=== PATIENT | female | born 1980 | race Caucasian/White ===

== ENCOUNTER 2018-08-25 14:29 | Emergency (ER) | payer SELFPAY ==
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
[2018-08-25] MEDS ORDERED: LIDOCAINE 1% INJ-PF (10 MG/ML) 30 ML SDV INJ ONE (15:51)
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
[2018-08-25 17:11] VITALS: BP 108/64
== END 2018-08-25 17:11 | disposition home or self-care (01) ==
LOC: ER 14:29
DX: S81.811A Laceration without foreign body, right lower leg, initial encounter (principal); W26.0XXA Contact with knife, initial encounter; Z88.6 Allergy status to analgesic agent
CPT/HCPCS: 99283; 73590; 12002; J3490

== ENCOUNTER 2020-03-11 16:20 | Observation (INO) | payer SELFPAY ==
[2020-03-11] MEDS ORDERED: PANTOPRAZOLE SODIUM 40 MG VIAL IV ONE (17:20)
--- NOTE | 2020-03-11 17:21 | ER Document Report ---
ED Medical Screen (RME) - General Chief Complaint: Abdominal Pain Stated Complaint: ABDOMINAL PAIN,BLACK STOOLS Time Seen by Provider: 03/11/20 17:14 Notes: HPI: 40-year-old female presenting with 1 week of a constant epigastric abdominal pain no vomiting. States she did try Pepto-Bismol on the first day to see if it would help the pain and it did not. Only took 1 dose but reports over the last 3 days she has had increasing constipation but her stool has turned dark black. PHYSICAL EXAMINATION: There is mild to moderate tenderness in the epigastric left upper quadrant region on palpation I have greeted and performed a rapid initial assessment of this patient. A comprehensive ED assessment and evaluation of the patient, analysis of test results and completion of medical decision making process will be conducted by an additional ED providers. TRAVEL OUTSIDE OF THE [place] IN LAST 30 DAYS: No - Related Data Allergies/Adverse Reactions: acetaminophen [From Tylenol] Allergy (Intermediate, Verified 08/25/18 14:32) Hives Home Medications: tums Past Medical History Neurological Medical History: Reports: Hx Migraine Renal/ Medical History: Denies: Hx Peritoneal Dialysis Past Surgical History: Reports: Hx Orthopedic Surgery - left leg - Immunizations Hx Diphtheria, Pertussis, Tetanus Vaccination: Yes Physical Exam - Vital signs Vitals: Temp Pulse Resp BP Pulse Ox 99.0 F 78 16 120/68 100 03/11/20 16:55 03/11/20 16:55 03/11/20 16:55 03/11/20 16:55 03/11/20 16:55 Course - Vital Signs Vital signs: Temp Pulse Resp BP Pulse Ox 99.0 F 78 16 120/68 100 03/11/20 16:55 03/11/20 16:55 03/11/20 16:55 03/11/20 16:55 03/11/20 16:55
[2020-03-11 17:43] LABS: ABSOLUTE EOSINOPHILS # (AUTO) 0.1 10^3/uL (0.0-0.6); ABSOLUTE LYMPHOCYTES (AUTO) 1.8 10^3/uL (0.5-4.7); ABSOLUTE MONOCYTES (AUTO) 0.4 10^3/uL (0.1-1.4); ABSOLUTE NEUT (AUTO) 3.1 10^3/uL (1.7-8.2); BASOPHILS % (AUTO) 0.6 % (0-2); EOSINOPHILS % (AUTO) 0.9 % (0-6); HEMOGLOBIN 10.1 g/dL (12.0-15.5); LYMPHOCYTES % (AUTO) 33.8 % (13-45); MEAN CORPUSCULAR HEMOGLOBIN 23.2 pg (27.0-33.4); MEAN CORPUSCULAR HGB CONC 32.6 g/dL (32.0-36.0); MEAN CORPUSCULAR VOLUME 71 fl (80-97); MONOCYTES % (AUTO) 7.2 % (3-13); PLATELET COUNT 315 10^3/uL (150-450); RED BLOOD COUNT 4.35 10^6/uL (3.72-5.28); RED CELL DISTRIBUTION WIDTH 18.9 % (11.5-14.0); SEGMENTED NEUTROPHILS % (AUTO) 57.5 % (42-78); TOTAL CELLS COUNTED % (AUTO) 100 %; WHITE BLOOD COUNT 5.4 10^3/uL (4.0-10.5)
[2020-03-11 17:55] LABS: APPEARANCE,URINE CLEAR; BILIRUBIN,URINE NEGATIVE (NEGATIVE); COLOR,URINE YELLOW; GLUCOSE, URINE NEGATIVE (NEGATIVE); KETONES,URINE NEGATIVE (NEGATIVE); LEUKOCYTE ESTERASE,URINE NEGATIVE (NEGATIVE); NITRITE,URINE NEGATIVE (NEGATIVE); PROTEIN,URINE NEGATIVE (NEGATIVE); URINE SPECIFIC GRAVITY 1.011; UROBILINOGEN,URINE NEGATIVE mg/dL (<2.0)
[2020-03-11 18:12] LABS: ALBUMIN 4.2 g/dL (3.5-5.0); ALKALINE PHOSPHATASE 66 U/L (38-126); ANION GAP 8 (5-19); ASPARTATE AMINO TRANSFERASE 18 U/L (14-36); BILIRUBIN,TOTAL 0.2 mg/dL (0.2-1.3); BLOOD UREA NITROGEN 11 mg/dL (7-20); CARBON DIOXIDE 27 mmol/L (22-30); CHLORIDE 104 mmol/L (98-107); GLUCOSE 91 mg/dL (75-110); POTASSIUM 4.6 mmol/L (3.6-5.0); TOTAL PROTEIN 7.4 g/dL (6.3-8.2)
--- NOTE | 2020-03-11 21:24 | RADIOLOGY REPORT (SQ) ---
CLINICAL INDICATION: epigastric pain. . TECHNIQUE: Contrast enhanced spiral axial CT imaging was obtained of the abdomen and pelvis with multiplanar reconstructions. This exam was performed according to our departmental dose-optimization program, which includes automated exposure control, adjustment of the mA and/or kV according to patient size and/or use of iterative reconstruction techniques. Additional delayed phase imaging . Repeat imaging was obtained due to IV failure on initial imaging. COMPARISON: None. CORRELATION: None. FINDINGS: Abdomen: The lung bases are grossly clear. The heart is of normal size. No evidence of pleural or pericardial fluid. The liver is of normal size contour and attenuation. The gallbladder is nondistended without inflammatory change. The pancreas is unremarkable. The spleen is unremarkable. The adrenals are unremarkable. The kidneys appear grossly normal without evidence of urolithiasis or hydronephrosis. There is no evidence of free air. Small amount of free fluid in the deep pelvis, simple appearing. No bulky adenopathy. Abdominal aorta is nonaneurysmal. Pelvis: The bowel is nonobstructed. The bowel is unopacified with oral contrast. Pelvic contents definite presumed ovarian cysts, bilaterally measuring 3.3 cm on the left and estimated at 2.3 cm on the right. The appendix is normal. Visualized bones demonstrate apparent old posttraumatic change to the pelvis.. IMPRESSION: No acute intra-abdominal process is identified. Specifically, the cause of the epigastric pain is not seen. Small amount of free intraperitoneal fluid, simple appearing.. Presumed ovarian cysts
--- NOTE | 2020-03-11 23:02 | ER Document Report ---
ED GI/ - General Chief Complaint: Abdominal Pain Stated Complaint: ABDOMINAL PAIN,BLACK STOOLS Time Seen by Provider: 03/11/20 17:14 Notes: Patient is a 40-year-old female presents emergency department with a chief complaint of left upper quadrant abdominal pain. Patient states that her symptoms started about a week ago. The pain has come and gone. She also reports black tarry stools. Patient states that she has been taking Aleve about 5 times a week for pain. Reports some dizziness every now and again. TRAVEL OUTSIDE OF THE [place] IN LAST 30 DAYS: No - Related Data Allergies/Adverse Reactions: acetaminophen [From Tylenol] Allergy (Intermediate, Verified 08/25/18 14:32) Hives Home Medications: tums Past Medical History - Social History Smoking Status: Unknown if Ever Smoked Family History: Reviewed & Not Pertinent Neurological Medical History: Reports: Hx Migraine Renal/ Medical History: Denies: Hx Peritoneal Dialysis Past Surgical History: Reports: Hx Orthopedic Surgery - left leg - Immunizations Hx Diphtheria, Pertussis, Tetanus Vaccination: Yes Hx Pneumococcal Vaccination: 09/11/00 Review of Systems - Review of Systems Notes: REVIEW OF SYSTEMS: CONSTITUTIONAL : Denies recent illness. Denies recent unintentional weight loss. Denies fever, chills, or sweats. EENT: Denies eye, ear, throat, or mouth pain, discharge, or symptoms. Denies nasal or sinus congestion. CARDIOVASCULAR: Denies chest pain. RESPIRATORY: Denies shortness of breath, cough, congestion, difficulty breathing, or wheezing. GASTROINTESTINAL: See HPI. GENITOURINARY: Denies difficulty urinating, burning, blood in urine, urgency or frequency. MUSCULOSKELETAL: Denies neck and back pain. Denies joint pain or swelling. SKIN: Denies rash, itchiness, or lesions HEMATOLOGIC : Denies easy bruising or bleeding. LYMPHATIC: Denies swollen, painful, enlarged glands. NEUROLOGICAL: Denies no numbness or tingling denies weakness. Denies headache. Denies altered mental status. Denies alteration in speech. PSYCHIATRIC: Denies stress, anxiety, alteration in sleep patterns, or depression. All other systems reviewed and negative. Physical Exam - Vital signs Vitals: Temp Pulse Resp BP Pulse Ox 99.0 F 78 16 120/68 100 03/11/20 16:55 03/11/20 16:55 03/11/20 16:55 03/11/20 16:55 03/11/20 16:55 - Notes Notes: PHYSICAL EXAMINATION: GENERAL: Appears well, healthy, well-nourished, no acute distress. HEAD: Normocephalic, atraumatic. EYES: PERRL, conjunctiva normal, all extraocular movements intact, sclera nonicteric ENT: Moist mucous membranes. NECK: Supple, no noticeable swelling, redness, rash. Normal range of motion. LUNGS: Equal breath sounds bilaterally and clear to auscultation. No wheezes rales or rhonchi. CARDIOVASCULAR: S1-S2, regular rate, regular rhythm. Radial pulses 2+, normal. ABDOMEN: Normoactive bowel sounds. Soft, tender left upper quadrant, no guarding, no rebound tenderness, and no masses palpated. EXTREMITIES: Normal strength and range of motion, no pitting or edema. No cyanosis. NEUROLOGICAL: Moves all extremities upon command. Strength 5/5 in all extremities. PSYCH: Normal mood, normal affect. SKIN: Warm, dry. No rash, lesions, ulcerations noted. Normal skin turgor. RECTAL: No stool noted on rectal exam. Course - Re-evaluation Re-evalutation: 03/11/20 23:20 Hematology shows a hemoglobin of 10.1 and hematocrit of 31. Will repeat labs, as patient still continues to have pain. Both of those labs, will reassess. Chemistries are unremarkable. LFTs are normal and lipase is also normal. Urinalysis is grossly unremarkable. Rectal exam done with ELLA Trevizo at [facility]. No stool noted in rectal vault. 03/12/20 00:03 Repeat labs show a hemoglobin drop of one-point from 10.1-9.1 in 5 hours. Patient did not receive any fluids. 03/12/20 00:[address] Quintero the surgeon network control supervisor. He would like the patient to be admitted to the hospital service. 03/12/20 00:[address] Zuluaga, the hospitalist. Patient will be admitted to the medical floor. - Vital Signs Vital signs: Temp Pulse Resp BP Pulse Ox 98.4 F 65 15 92/49 L 95 03/13/20 07:29 03/13/20 09:17 03/13/20 09:17 03/13/20 08:00 03/13/20 09:17 - Laboratory Result Diagrams: 03/13/20 04:40 03/11/20 17:30 Laboratory results interpreted by me: 03/11/20 03/11/20 17:30 23:17 Hgb 10.1 L 9.1 L Hct 31.0 L 28.9 L MCV 71 L 72 L MCH 23.2 L 22.6 L MCHC 31.3 L RDW 18.9 H 18.8 H Discharge - Discharge Clinical Impression: Complaint of melena Anemia Qualifiers: Anemia type: unspecified type Qualified Code(s): D64.9 - Anemia, unspecified Condition: Stable Disposition: ADMITTED INPATIENT Admitting Provider: Zan (Hospitalist) Unit Admitted: Medical Floor
[2020-03-11] MEDS ORDERED: FAMOTIDINE 20 MG TABLET PO ONE (23:24)
[2020-03-11] MEDS ORDERED: SUCRALFATE 1 GM TABLET PO ONE (23:24)
[2020-03-11 23:43] LABS: ABSOLUTE BASOPHILS # (AUTO) 0.1 10^3/uL (0.0-0.2); ABSOLUTE EOSINOPHILS # (AUTO) 0.1 10^3/uL (0.0-0.6); ABSOLUTE LYMPHOCYTES (AUTO) 2.2 10^3/uL (0.5-4.7); ABSOLUTE MONOCYTES (AUTO) 0.3 10^3/uL (0.1-1.4); ABSOLUTE NEUT (AUTO) 2.5 10^3/uL (1.7-8.2); EOSINOPHILS % (AUTO) 1.4 % (0-6); HEMATOCRIT 28.9 % (36.0-47.0); HEMOGLOBIN 9.1 g/dL (12.0-15.5); LYMPHOCYTES % (AUTO) 42.8 % (13-45); MEAN CORPUSCULAR HEMOGLOBIN 22.6 pg (27.0-33.4); MEAN CORPUSCULAR HGB CONC 31.3 g/dL (32.0-36.0); MEAN CORPUSCULAR VOLUME 72 fl (80-97); MONOCYTES % (AUTO) 5.5 % (3-13); PLATELET COUNT 205 10^3/uL (150-450); RED CELL DISTRIBUTION WIDTH 18.8 % (11.5-14.0); SEGMENTED NEUTROPHILS % (AUTO) 48.3 % (42-78); TOTAL CELLS COUNTED % (AUTO) 100 %; WHITE BLOOD COUNT 5.2 10^3/uL (4.0-10.5)
[2020-03-12] MEDS ORDERED: TEMAZEPAM 7.5 MG CAPSULE PO PRN (01:30)
[2020-03-12] MEDS ORDERED: IPRATROPIUM/ALBUTEROL 0.5-2.5 MG/3 ML AMPUL NEB PRN (01:30)
[2020-03-12] MEDS ORDERED: PROMETHAZINE HCL INJ 25 MG/1 ML VIAL IV PRN (01:30)
[2020-03-12] MEDS ORDERED: MAGNESIUM HYDROXIDE SUSP 30 ML UDCUP PO PRN (01:30)
[2020-03-12] MEDS ORDERED: ONDANSETRON HCL INJ/PF 4 MG/2 ML SDV IV PRN (01:30)
[2020-03-12] MEDS ORDERED: MORPHINE SULFATE 10 MG/ML INJ IV PRN (01:34)
--- NOTE | 2020-03-12 02:06 | PDOC H&P ---
History of Present Illness Admission Date/PCP: 03/12/20 00:20 History of Present Illness: MARY SHARPE is a 40 year old female with past medical history of migraine headaches, chronic low back pain, presented to ED complaining of abdominal pain and melena for the last 1 week. Abdominal pain is midepigastric, burning quality, 6/10 on severity scale, nonradiating, worse with eating, associated with nocturnal cough, metallic taste and melena for the last 1 week. Patient suffers from chronic back pain and takes 400 mg naproxen 5 times a week for the last several years. Denies any nosebleeds, easy bruising, hematemesis, hemoptysis, vaginal bleeding or hematochezia. Also endorses history of heavy menstrual bleeding however regular and last menstrual period was 3 weeks ago. Denies any headache, fever, cough, shortness of breath, chills, chest pain, nausea, vomiting, diarrhea or constipation. In ED was noted to be anemic, surgery was consulted for possible upper GI endosc opy and they recommended for patient to be admitted under hospitalist and they will follow as consult. Past Medical History Neurological Medical History: Reports: Migraine Past Surgical History Past Surgical History: Reports: Orthopedic Surgery - left leg Social History Smoking Status: Unknown if Ever Smoked Family History Family History: Reviewed & Not Pertinent Parental Family History Reviewed: Yes Children Family History Reviewed: Yes Sibling(s) Family History Reviewed.: Yes Medication/Allergy Home Medications: No Home Medications 08/25/18 Allergies/Adverse Reactions: acetaminophen [From Tylenol] Allergy (Intermediate, Verified 08/25/18 14:32) Hives Review of Systems Review of Systems: as per hpi Physical Exam Vital Signs: Temp Pulse Resp BP Pulse Ox 98.3 F 74 12 113/72 99 03/11/20 22:55 03/11/20 22:55 03/11/20 22:55 03/11/20 22:55 03/11/20 22:55 Intake & Output 03/10/20 03/11/20 03/12/20 06:59 06:59 06:59 Weight 67.5 kg General appearance: PRESENT: no acute distress, well-developed, well-nourished Head exam: PRESENT: atraumatic, normocephalic Respiratory exam: PRESENT: clear to auscultation sherice. ABSENT: rales, rhonchi, wheezes Cardiovascular exam: PRESENT: RRR. ABSENT: diastolic murmur, rubs, systolic murmur GI/Abdominal exam: PRESENT: normal bowel sounds, soft, tenderness - epigastric. ABSENT: distended, guarding, mass, organolmegaly, rebound Extremities exam: PRESENT: full ROM. ABSENT: calf tenderness, clubbing, pedal edema Neurological exam: PRESENT: alert, awake, oriented to person, oriented to place, oriented to time, oriented to situation, CN II-XII grossly intact. ABSENT: motor sensory deficit Skin exam: PRESENT: dry, intact, warm. ABSENT: cyanosis, rash Results Laboratory Results: 03/11/20 23:17 03/11/20 17:30 03/11/20 03/11/20 03/11/20 17:30 17:30 17:30 WBC 5.4 RBC 4.35 Hgb 10.1 L Hct 31.0 L MCV 71 L MCH 23.2 L MCHC 32.6 RDW 18.9 H Plt Count 315 Seg Neutrophils % 57.5 Sodium 139.0 Potassium 4.6 Chloride 104 Carbon Dioxide 27 Anion Gap 8 BUN 11 Creatinine 0.71 Est GFR ( Amer) > 60 Glucose 91 Calcium 10.0 Total Bilirubin 0.2 AST 18 Alkaline Phosphatase 66 Total Protein 7.4 Albumin 4.2 Lipase 83.1 Serum HCG, Qual NEGATIVE Urine Color Urine Appearance Urine pH Ur Specific [place] Urine Protein Urine Glucose (UA) Urine Ketones Urine Blood Urine Nitrite Ur Leukocyte Esterase Urine WBC (Auto) Blood Type Antibody Screen 03/11/20 03/11/20 03/11/20 17:30 17:30 23:17 WBC 5.2 RBC 4.00 Hgb 9.1 L Hct 28.9 L MCV 72 L MCH 22.6 L MCHC 31.3 L RDW 18.8 H Plt Count 205 Seg Neutrophils % 48.3 Sodium Potassium Chloride Carbon Dioxide Anion Gap BUN Creatinine Est GFR ( Amer) Glucose Calcium Total Bilirubin AST Alkaline Phosphatase Total Protein Albumin Lipase Serum HCG, Qual Urine Color YELLOW Urine Appearance CLEAR Urine pH 8.0 Ur Specific [place] 1.011 Urine Protein NEGATIVE Urine Glucose (UA) NEGATIVE Urine Ketones NEGATIVE Urine Blood NEGATIVE Urine Nitrite NEGATIVE Ur Leukocyte Esterase NEGATIVE Urine WBC (Auto) 0 Blood Type O POSITIVE Antibody Screen NEGATIVE Impressions: Abdomen/Pelvis CT 03/11/20 17:20 IMPRESSION: No acute intra-abdominal process is identified. Specifically, the cause of the epigastric pain is not seen. Small amount of free intraperitoneal fluid, simple appearing.. Presumed ovarian cysts Assessment and Plan - Diagnosis (1) Upper GI bleed Is this a current diagnosis for this admission?: Yes Plan: Most likely gastritis/gastric ulcer likely due to chronic NSAID intake. Complaining of melena for the last 1 week associated with epigastric abdominal pain. Admit to medical floor, obtain guaiac, anemia work-up, surgery consult for possible upper GI endoscopy. Monitor H&H. Follow-up iron panel. (2) GERD (gastroesophageal reflux disease) Is this a current diagnosis for this admission?: Yes Plan: Most likely due to NSAID use. Denies any history of alcohol abuse, cirrhosis or variceal bleeding. Admit to floor, IV PPIs. Surgery consulted possible upper GI endoscopy. (3) Anemia Qualifiers: Anemia type: unspecified type Qualified Code(s): D64.9 - Anemia, unspecified Is this a current diagnosis for this admission?: Yes Plan: Likely iron deficiency anemia, most likely due to gastritis or gastric ulcer likely due to NSAID abuse. Monitor H&H, follow-up iron panel and upper GI endoscopy.
[2020-03-12 03:17] LABS: ABSOLUTE RETICS # 0.042 10^6/uL (0.028-0.122); RETICULOCYTE COUNT (AUTO) 1.02 % (0.66-2.85)
[2020-03-12] MEDS: DEXTROSE 5%-NORMAL SALINE 1,000 ML IV PRN ×2 (03:22→12:32)
[2020-03-12 03:26] LABS: IRON(TIBC) 17.7 ug/dL (37-170)
[2020-03-12 04:03] LABS: FERRITIN 4.11 ng/mL (6.2-137.0)
[2020-03-12] MEDS ORDERED: PEG 3350/NA SULF,BICARB,CL/KCL 4000 ML PO ONE (06:34)
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
[2020-03-12] MEDS ORDERED: GLUCAGON,HUMAN RECOMB 1 MG INJ SUBCUT PRN (08:06)
[2020-03-12] MEDS ORDERED: DEXTROSE 50%-WATER 25 GM/50 ML DISP.SYRIN IV PRN ×2 (08:06)
[2020-03-12] MEDS ORDERED: DEXTROSE 40% GEL 15 GM TUBE PO PRN ×2 (08:06)
[2020-03-12] MEDS ORDERED: BISACODYL 5 MG TABEC PO ONE (08:30)
[2020-03-12] MEDS: PANTOPRAZOLE SODIUM 40 MG VIAL IV SCH ×2 (09:48→21:27)
[2020-03-12] MEDS ORDERED: IRON SUCROSE COMPLEX INJ/PF 100 MG/5 ML SDV IV SCH (10:00)
[2020-03-12] MEDS: IRON SUCROSE COMPLEX 300 MG in NORMAL SALINE 250 ML IV SCH (10:03)
--- NOTE | 2020-03-12 10:09 | Progress Note ---
Provider Note Provider Note: Patient seen by me. She endorses melanotic stools. Chronic Aleve usage. Also having epigastric pain. Minimal tenderness on exam. High suspicion for upper GI bleed likely from NSAID induced ulcer. Discussed with surgery who informs me that plan is for upper and lower endoscopy tomorrow. Patient receiving bowel prep. Clear liquid diet. Significant iron deficiency anemia noted and I will give her Venofer.
[2020-03-13 06:05] LABS: ABSOLUTE EOSINOPHILS # (AUTO) 0.1 10^3/uL (0.0-0.6); ABSOLUTE LYMPHOCYTES (AUTO) 1.1 10^3/uL (0.5-4.7); ABSOLUTE MONOCYTES (AUTO) 0.4 10^3/uL (0.1-1.4); EOSINOPHILS % (AUTO) 1.4 % (0-6); HEMATOCRIT 30.1 % (36.0-47.0); HEMOGLOBIN 9.5 g/dL (12.0-15.5); LYMPHOCYTES % (AUTO) 23.8 % (13-45); MEAN CORPUSCULAR HEMOGLOBIN 22.4 pg (27.0-33.4); MEAN CORPUSCULAR HGB CONC 31.6 g/dL (32.0-36.0); MEAN CORPUSCULAR VOLUME 71 fl (80-97); MONOCYTES % (AUTO) 8.5 % (3-13); PLATELET COUNT 256 10^3/uL (150-450); RED BLOOD COUNT 4.26 10^6/uL (3.72-5.28); RED CELL DISTRIBUTION WIDTH 18.6 % (11.5-14.0); SEGMENTED NEUTROPHILS % (AUTO) 65.3 % (42-78); TOTAL CELLS COUNTED % (AUTO) 100 %; WHITE BLOOD COUNT 4.6 10^3/uL (4.0-10.5)
[2020-03-13] MEDS ORDERED: EPINEPHRINE INJ 1 MG/10 ML DISP.SYRIN ONE (09:55)
[2020-03-13] MEDS ORDERED: PROPOFOL INJ 200 MG/20 ML VIAL IV ONE ×2 (10:00→10:53)
[2020-03-13] MEDS ORDERED: PROPOFOL 0 MG/0 ML INFUS..BTL IV ONE (10:51)
--- NOTE | 2020-03-13 11:19 | Operative Report ---
Nonrecallable Operative Report DATE OF SURGERY: 03/13/20 PREOPERATIVE DIAGNOSIS: gi bleeding POSTOPERATIVE DIAGNOSIS: prepyloric ucler x2. normal colonoscopy OPERATION: Esophagogastroduodenoscopy and colonoscopy SURGEON: MARÍA ELENA LOBO ANESTHESIA: GA TISSUE REMOVED OR ALTERED: biopsy of antrum COMPLICATIONS: none ESTIMATED BLOOD LOSS: 0 INTRAOPERATIVE FINDINGS: prepyloric ulcer x2 PROCEDURE: Patient was brought to the operating room awake alert stable condition placed on the operative table in a left lateral decubitus position and given IV sedation throughout the procedure. The first portion of the procedure is the esophagogastroduodenoscopy. The pulse gastroscope was passed into the posterior pharynx and easily easily traversed the upper esophageal sphincters into the esophagus and then traversed the lower esophageal sphincter into the stomach. Scope was advanced to the antrum upon reaching the distal antrum prepylorus we noted to ulcers approximately 0.5 cm diameter 1 was posterior 1 was anterior lateral they were not bleeding. A biopsy was obtained of the posterior ulcer mucosa just proximal to the ulceration itself. The pylorus was then intubated the duodenum examined and it appeared to be normal without evidence of mucosal ulcerations or other abnormalities. The scope was then withdrawn back into the stomach it was retroflexed there was no evidence of a hiatal hernia. Scope was then slowly withdrawn through the esophagus that appeared to be normal and removed. Patient went then proceeded with the colonoscopy portion of the procedure The patient was placed in a left lateral decubitus position as before and the Olympus colonoscope was placed into the rectum and traversed the rectum into the sigmoid colon and then up the descending colon to the splenic flexure transverse colon hepatic flexure down the ascending colon to the cecum we reached the cecum examined it was normal without evidence of polyps. The scope was then slowly withdrawn up through the ascending colon hepatic flexure and transverse colon all this was examined without evidence of any abdomen maladies or mucosal defects in the splenic flexure was examined as was the descending colon sigmoid colon and rectum there were no abnormal mucosal defects or evidence of any bleeding. The scope was slowly withdrawn. Impression prepyloric gastric ulcers biopsy x1 for H. pylori. 2. Normal colonoscopy. Recommendations. Would start the patient on IV Protonix Carafate and obtain the pathology report for possible H. pylori. Treat H. pylori as indicated. Surgery will sign off at this time and reconsult as necessary. Patient does not need a colonoscopy again until reaching age 51.
[2020-03-13] MEDS: PANTOPRAZOLE SODIUM 40 MG VIAL IV SCH (12:23)
[2020-03-13] MEDS: IRON SUCROSE COMPLEX 300 MG in NORMAL SALINE 250 ML IV SCH (12:23)
--- NOTE | 2020-03-13 13:39 | PDOC DISCHARGE SUMMARY ---
Impression - Admit/DC Date/PCP Admission Date/Primary Care Provider: 03/12/20 00:20 Discharge Date: 03/13/20 - Discharge Diagnosis (1) NSAID-induced gastric ulcer Is this a current diagnosis for this admission?: Yes (2) Upper GI bleed Is this a current diagnosis for this admission?: Yes (3) Iron deficiency anemia Is this a current diagnosis for this admission?: Yes (4) Blood loss anemia Is this a current diagnosis for this admission?: Yes (5) Family history of colon cancer Is this a current diagnosis for this admission?: Yes - Additional Information Resuscitation Status: Full Code Discharge Diet: Regular Discharge Activity: Activity As Tolerated Referrals: [facility] [Outside] Prescriptions: Sucralfate [Carafate Susp 1 Gm/10 Ml Udcup] 1 gm PO QID 30 Days udc Ferrous Sulfate [Feosol 325 mg Tablet] 325 mg PO DAILY #30 tab Pantoprazole Sodium [Protonix [address] Tablet] 40 mg PO QAMPM #60 tablet. Home Medications: Ferrous Sulfate [Feosol 325 mg Tablet] 325 mg PO DAILY #30 tab 03/13/20 Pantoprazole Sodium [Protonix [address] Tablet] 40 mg PO QAMPM #60 tablet. 03/13/20 Sucralfate [Carafate Susp 1 Gm/10 Ml Udcup] 1 gm PO QID 30 Days udc 03/13/20 History of Present Illiness History of Present Illness: According to admitting provider: MARY SHARPE is a 40 year old female with past medical history of migraine headaches, chronic low back pain, presented to ED complaining of abdominal pain and melena for the last 1 week. Abdominal pain is midepigastric, burning quality, 6/10 on severity scale, nonradiating, worse with eating, associated with nocturnal cough, metallic taste and melena for the last 1 week. Patient suffers from chronic back pain and takes 400 mg naproxen 5 times a week for the last several years. Denies any nosebleeds, easy bruising, hematemesis, hemoptysis, vaginal bleeding or hematochezia. Also endorses history of heavy menstrual bleeding however regular and last menstrual period was 3 weeks ago. Denies any headache, fever, cough, shortness of breath, chills, chest pain, nausea, vomiting, diarrhea or constipation. In ED was noted to be anemic, surgery was consulted for possible upper GI endoscopy and they recommended for patient to be admitted under hospitalist and they will follow as consult. Hospital Course Hospital Course: Patient presented for evaluation of melanotic stools as well as anemia. Anemia is thought to be due to blood loss. Patient was felt to be having upper GI bleed especially as she also complaint of epigastric pain at presentation. Iron studies revealed severe iron deficiency anemia likely secondary to blood loss. Patient was given Venofer. Patient was taken for upper and lower endoscopy. Colonoscopy was normal but upper endoscopy revealed 2 prepyloric gastric ulcers. Biopsy was taken. Patient is doing well following procedure and is eager to go home. I will be discharging patient on Protonix and Carafate. I believe the patient gastric ulcers are due to NSAID use chronically and I have advised patient to discontinue all forms of NSAIDs. Also encouraged patient to follow- up for results of her biopsy to see if antibiotics is needed only if H. pylori is positive. Patient has expressed understanding and has been discharged safely. Patient also started on ferrous sulfate for iron deficiency anemia. Physical Exam Vital Signs: Temp Pulse Resp BP Pulse Ox 98.0 F 59 L 16 96/60 L 100 03/13/20 12:30 03/13/20 12:30 03/13/20 12:30 03/13/20 12:30 03/13/20 12:30 Intake & Output 03/12/20 03/13/20 03/14/20 06:59 06:59 06:59 Intake Total 0 1758 100 Output Total 0 Balance 0 1758 100 Weight 67.2 kg 67.3 kg General appearance: PRESENT: no acute distress, cooperative Neck exam: ABSENT: JVD Respiratory exam: PRESENT: clear to auscultation sherice, unlabored. ABSENT: tachypnea, wheezes Cardiovascular exam: PRESENT: RRR, +S1, +S2. ABSENT: tachycardia GI/Abdominal exam: PRESENT: soft. ABSENT: tenderness Neurological exam: PRESENT: alert, awake, oriented to person, oriented to place, oriented to time Results Laboratory Results: WBC 4.6 10^3/uL (4.0-10.5) 03/13/20 04:40 RBC 4.26 10^6/uL (3.72-5.28) 03/13/20 04:40 Hgb 9.5 g/dL (12.0-15.5) L 03/13/20 04:40 Hct 30.1 % (36.0-47.0) L 03/13/20 04:40 MCV 71 fl (80-97) L 03/13/20 04:40 MCH 22.4 pg (27.0-33.4) L 03/13/20 04:40 MCHC 31.6 g/dL (32.0-36.0) L 03/13/20 04:40 RDW 18.6 % (11.5-14.0) H 03/13/20 04:40 Plt Count 256 10^3/uL (150-450) 03/13/20 04:40 Lymph % (Auto) 23.8 % (13-45) 03/13/20 04:40 Keith % (Auto) 8.5 % (3-13) 03/13/20 04:40 Eos % (Auto) 1.4 % (0-6) 03/13/20 04:40 Baso % (Auto) 1.0 % (0-2) 03/13/20 04:40 Reticulocyte # 0.042 10^6/uL (0.028-0.122) 03/12/20 02:55 Absolute Neuts (auto) 3.0 10^3/uL (1.7-8.2) 03/13/20 04:40 Absolute Lymphs (auto) 1.1 10^3/uL (0.5-4.7) 03/13/20 04:40 Absolute Monos (auto) 0.4 10^3/uL (0.1-1.4) 03/13/20 04:40 Absolute Eos (auto) 0.1 10^3/uL (0.0-0.6) 03/13/20 04:40 Absolute Basos (auto) 0.0 10^3/uL (0.0-0.2) 03/13/20 04:40 Seg Neutrophils % 65.3 % (42-78) 03/13/20 04:40 Retic Count (auto) 1.02 % (0.66-2.85) 03/12/20 02:55 Sodium 139.0 mmol/L (137-145) 03/11/20 17:30 Potassium 4.6 mmol/L (3.6-5.0) 03/11/20 17:30 Chloride 104 mmol/L (98-107) 03/11/20 17:30 Carbon Dioxide 27 mmol/L (22-30) 03/11/20 17:30 Anion Gap 8 (5-19) 03/11/20 17:30 BUN 11 mg/dL (7-20) 03/11/20 17:30 Creatinine 0.71 mg/dL (0.52-1.25) 03/11/20 17:30 Est GFR ( Amer) > 60 (>60) 03/11/20 17:30 Est GFR (MDRD) Non-Af > 60 (>60) 03/11/20 17:30 Glucose 91 mg/dL (75-110) 03/11/20 17:30 Calcium 10.0 mg/dL (8.4-10.2) 03/11/20 17:30 Iron 17.7 ug/dL (37-170) L 03/12/20 02:55 TIBC 372 ug/dL (250-450) 03/12/20 02:55 % Saturation 5 % 03/12/20 02:55 Ferritin 4.11 ng/mL (6.2-137.0) L 03/12/20 02:55 Total Bilirubin 0.2 mg/dL (0.2-1.3) 03/11/20 17:30 Direct Bilirubin 0.0 mg/dL (0.0-0.4) 03/11/20 17:30 Neonat Total Bilirubin Not Reportable 03/11/20 17:30 Neonat Direct Bilirubin Not Reportable 03/11/20 17:30 Neonat Indirect Bili Not Reportable 03/11/20 17:30 AST 18 U/L (14-36) 03/11/20 17:30 ALT 11 U/L (<35) 03/11/20 17:30 Alkaline Phosphatase 66 U/L (38-126) 03/11/20 17:30 Total Protein 7.4 g/dL (6.3-8.2) 03/11/20 17:30 Albumin 4.2 g/dL (3.5-5.0) 03/11/20 17:30 Lipase 83.1 U/L (23-300) 03/11/20 17:30 Vitamin B12 287.0 pg/mL (239-931) 03/12/20 02:55 Folate 16.30 ng/mL (>2.76) 03/12/20 02:55 Serum HCG, Qual NEGATIVE (NEGATIVE) 03/11/20 17:30 Urine Color YELLOW 03/11/20 17:30 Urine Appearance CLEAR 03/11/20 17:30 Urine pH 8.0 (5.0-9.0) 03/11/20 17:30 Ur Specific [place] 1.011 03/11/20 17:30 Urine Protein NEGATIVE mg/dL (NEGATIVE) 03/11/20 17:30 Urine Glucose (UA) NEGATIVE mg/dL (NEGATIVE) 03/11/20 17:30 Urine Ketones NEGATIVE mg/dL (NEGATIVE) 03/11/20 17:30 Urine Blood NEGATIVE (NEGATIVE) 03/11/20 17:30 Urine Nitrite NEGATIVE (NEGATIVE) 03/11/20 17:30 Urine Bilirubin NEGATIVE (NEGATIVE) 03/11/20 17:30 Urine Urobilinogen NEGATIVE mg/dL (<2.0) 03/11/20 17:30 Ur Leukocyte Esterase NEGATIVE (NEGATIVE) 03/11/20 17:30 Urine WBC (Auto) 0 /HPF 03/11/20 17:30 Squamous Epi Cells Auto <1 /HPF 03/11/20 17:30 Urine Mucus (Auto) RARE /LPF 03/11/20 17:30 Urine Ascorbic Acid NEGATIVE (NEGATIVE) 03/11/20 17:30 Stool Occult Blood NEGATIVE (NEGATIVE) 03/12/20 09:50 SARS-CoV-2 (PCR) NEGATIVE (NEGATIVE) 03/12/20 08:10 Blood Type O POSITIVE 03/11/20 17:30 Antibody Screen NEGATIVE 03/11/20 17:30 Impressions: Abdomen/Pelvis CT 03/11/20 17:20 IMPRESSION: No acute intra-abdominal process is identified. Specifically, the cause of the epigastric pain is not seen. Small amount of free intraperitoneal fluid, simple appearing.. Presumed ovarian cysts Plan Time Spent: Greater than 30 Minutes Stroke Is this a Stroke Patient?: No Acute Heart Failure - Is this a Heart Failure Patient?: No
[2020-03-13 14:36] VITALS: BP 92/49
== END 2020-03-13 15:14 | disposition home or self-care (01) ==
LOC: ER 16:20 → INTOOBSV 03-12 00:20 → EH 03-12 00:20 → 4N 03-12 01:45
PROVIDERS: ADMIT Internal Medicine; ATTEND Internal Medicine
DX: K29.51 Unspecified chronic gastritis with bleeding (principal); D50.0 Iron deficiency anemia secondary to blood loss (chronic); T39.395A Adverse effect of other nonsteroidal anti-inflammatory drugs [NSAID], initial encounter; K25.4 Chronic or unspecified gastric ulcer with hemorrhage; G89.29 Other chronic pain; M54.5 Low back pain; R05 Cough; K21.9 Gastro-esophageal reflux disease without esophagitis; Z80.0 Family history of malignant neoplasm of digestive organs; Z03.818 Encounter for observation for suspected exposure to other biological agents ruled out; Z79.1 Long term (current) use of non-steroidal anti-inflammatories (NSAID); Z87.81 Personal history of (healed) traumatic fracture; Z87.891 Personal history of nicotine dependence
CPT/HCPCS: 99285; 86900; 86901; 36415 ×3; 86850; 82607; 82728; 82746; 83540; 83550; 83690; 84703; 85025 ×2; 87635; 82272; 85045; 80053; 81001; 88305 ×2; 74177; 45378; 43235; J1756 ×2; C9113 ×2; J3490; J2405; J7042; J7050 ×2; J2704; C9803; 43239; 813; G0378; J0171